=== PATIENT | female | born 1930 | race Caucasian/White ===

== ENCOUNTER 2021-06-09 08:48 | Emergency (ER) | payer MEDICARE, OTHER, SELFPAY ==
[~2021-06-09] VITALS: Ht 177.8 cm; Wt 68.0 kg
[2021-06-09 08:50] VITALS: BP_SYST 127
--- NOTE | 2021-06-09 08:50 | NUR ---
Placed in room 8 . Placed on belt builder, blood pressure machine and pulse oximeter. To gown for exam. Side rails up. Report given to GILSON CORONEL.
--- NOTE | 2021-06-09 09:00 | NUR ---
ER at bedside examining patient.
--- NOTE | 2021-06-09 09:20 | NUR ---
LAB AT BED SIDE.
[2021-06-09 09:31] LABS: BASOPHILS % (AUTO) 0.2 % (0.0-2.0); EOSINOPHILS # (AUTO) 0.1 K/uL (0.0-0.4); EOSINOPHILS % (AUTO) 0.7 % (0.0-4.0); HEMATOCRIT 39.5 % (36-48); HEMOGLOBIN 13.3 g/dL (12.0-16.0); LYMPHOCYTES # (AUTO) 0.6 K/uL (1.0-5.5); LYMPHOCYTES % (AUTO) 6.2 % (20.5-51.5); MEAN CORPUSCULAR HEMOGLOBIN 31 pg (27-31); MEAN CORPUSCULAR HGB CONC 34 % (32-36); MEAN CORPUSCULAR VOLUME 91 fL (79.0-98.0); MONOCYTES # (AUTO) 0.6 K/uL (0.0-1.0); MONOCYTES % (AUTO) 6.3 % (1.7-9.3); NEUTROPHILS # (AUTO) 8.7 K/uL (1.8-7.7); NEUTROPHILS % (AUTO) 86.6 % (40.0-70.0); PLATELET COUNT (AUTO) 169 K/uL (130-430); RED BLOOD CELL COUNT(AUTO) 4.34 MIL/uL (4.2-6.2); RED CELL DISTRIBUTION WIDTH 13.8 % (9.0-15.0); WHITE BLOOD COUNT (AUTO) 10.1 K/uL (4.8-10.8)
[2021-06-09] MEDS ORDERED: ROSU10TA2 PO (09:33)
[2021-06-09] MEDS ORDERED: ARIP10TA9 PO (09:33)
[2021-06-09] MEDS ORDERED: CYAN100010 PO (09:33)
[2021-06-09] MEDS ORDERED: VITA-219 PO (09:33)
[2021-06-09] MEDS ORDERED: ALEN10TA25 PO (09:33)
[2021-06-09] MEDS ORDERED: CALC200T47 PO (09:33)
[2021-06-09] MEDS ORDERED: PYRI50CA PO (09:33)
[2021-06-09] MEDS ORDERED: VITD2000 PO (09:33)
[2021-06-09] MEDS ORDERED: SERT-436 PO (09:33)
[2021-06-09] MEDS ORDERED: AMLO5TAB4 PO (09:33)
--- NOTE | 2021-06-09 09:33 | NUR ---
Medication reconciliation completed with information provided by [facility]. Any prior medication reconciliation on file was reviewed and corrected.
[2021-06-09 09:43] LABS: ANION GAP 8 (5-15); CALCIUM 8.6 mg/dL (8.4-11.0); CHLORIDE 99 mmol/L (98-107); CREATININE 0.88 mg/dL (0.55-1.30); GLUCOSE 122 mg/dL (70-99); POTASSIUM 4.2 mmol/L (3.5-5.1); SODIUM SERUM 137 mmol/L (136-145); UREA NITROGEN, BLOOD 18 mg/dL (8-21)
[2021-06-09 09:49] LABS: ALANINE AMINOTRANSFERASE 43 U/L (12-78); ALBUMIN 3.6 g/dL (3.4-4.8); ASPARTATE AMINOTRANSFERASE 43 U/L (10-37); TOTAL BILIRUBIN 0.6 mg/dL (0.0-1.0)
--- NOTE | 2021-06-09 11:22 | NUR ---
O2sat 95% on room air
--- NOTE | 2021-06-09 13:52 | NUR ---
spoke with Korina ANNE from [facility] she will make arrangements for transfer back home, pt. has been clear for discharge
--- NOTE | 2021-06-09 14:59 | NUR ---
Spoke with Khloe davidson, she will come in and warehouse picker pt. to transport back to [facility]
[2021-06-09 15:33] VITALS: BP_SYST 141
--- NOTE | 2021-06-09 15:34 | NUR ---
Patient and pts. lety weldon given written and verbal discharge instructions and verbalizes understanding. ER Dr. Marks discussed with patient the results and treatment provided. Patient in stable condition. ID arm band removed. Patient educated on pain management and to follow up with PMD. Pain Scale 0. Opportunity for questions provided and answered.
== END 2021-06-09 15:34 | disposition home or self-care (01) ==
LOC: SED 08:48
DX: M25.511 Pain in right shoulder (principal); R06.02 Shortness of breath; Z79.899 Other long term (current) drug therapy
CPT/HCPCS: 36415; 71045; 73030; 80053; 83880; 84484; 85025; 93005; 99285